=== PATIENT | female | born 1965 | race Caucasian/White ===

== ENCOUNTER 2017-02-24 11:10 | Emergency (ER) | payer BC, OTHER ==
[2017-02-24] MEDS ORDERED: 0.9 % SODIUM CHLORIDE 1,000 ML BAG IV ONE (11:20)
--- NOTE | 2017-02-24 11:40 | Emergency Department Record ---
History of Present Illness - General Chief Complaint: Abdominal Pain Stated Complaint: ABD PAIN Time Seen by Provider: 02/24/17 11:20 Source: Patient Mode of Arrival: Ambulatory Limitations: No limitations - History of Present Illness Initial Comments: 52 yo female presents with right flank pain and RLQ pain that initially started on Friday. The pain is somewhat sharp. The pain is better if resting and more pronounced if active. She has mild loose stools and mild nausea without vomiting. The pain comes and goes from the flank to the RLQ. No passing the midline. No fever. No blood in the stools. PCP Nini. Surgically history of C sections and gall bladder removal. MD Complaint: Abdominal pain, Flank pain Onset/Timin -: Days(s) Location: RLQ Radiation: None Migration to: No migration Severity: Mild Quality: Aching, Dull Consistency: Constant Improves With: Nothing Worsens With: Movement Associated Symptoms: Nausea - Related Data Patient : No Home Medications Medication Instructions Recorded Confirmed Last Taken Multivit-Min/Iron/Folic/Lutein 1 each PO DAILY 02/24/17 02/24/17 Unknown [Centrum Silver Women Tablet] Previous Rx's Medication Instructions Recorded Hydrocodone/Acetaminophen [Carville 1 each PO Q8H #10 tablet 02/24/17 5-325 Tablet] Ondansetron [Zofran Odt] 4 mg PO Q8H #15 tab.rapdis 02/24/17 Allergies Allergy/AdvReac Type Severity Reaction Status Date / Time benzoyl peroxide Allergy Unknown Unverified 08/16/13 10:04 Allergies: Allergy Unknown Uncoded 08/16/13 10:04 Travel Screening - Travel/Exposure Within Last 30 Days Have you traveled within the last 30 days?: No Review of Systems Constitutional: Denies: Chills, Fever, Malaise, Weakness Eyes: Denies: Eye discharge ENT: Denies: Congestion, Throat pain Respiratory: Denies: Cough, Dyspnea, Hemoptysis, Stridor, Wheezes Cardiovascular: Denies: Chest pain, Palpitations, Syncope Endocrine: Denies: Fatigue Gastrointestinal: Reports: As per HPI, Abdominal pain, Diarrhea, Nausea. Denies : Constipation, Hematemesis, Hematochezia, Melena, Vomiting Genitourinary: Denies: Dysuria, Hematuria, Urgency Musculoskeletal: Reports: As per HPI, Back pain. Denies: Arthralgia Skin: Denies: Bruising, Change in color, Rash Neurological: Denies: Headache, Numbness, Weakness Psychiatric: Denies: Anxiety Hematological/Lymphatic: Denies: Blood Clots, Easy bleeding, Easy bruising, Swollen glands Past Medical History - SOCIAL HISTORY Smoking Status: Never smoker Alcohol Use: None Drug Use: None - RESPIRATORY Hx Respiratory Disorders: Yes - CARDIOVASCULAR Hx Cardio Disorders: No - NEURO Hx Neuro Disorders: No - GI Hx GI Disorders: No - Hx Genitourinary Disorders: No - ENDOCRINE Hx Endocrine Disorders: No - MUSCULOSKELETAL Hx Musculoskeletal Disorders: No - PSYCH Hx Psych Problems: No - HEMATOLOGY/ONCOLOGY Hx Hematology/Oncology Disorders: Yes Hx Anemia: Yes Family Medical History Any Significant Family History?: No Physical Exam - General General Appearance: Alert, Oriented x3, Cooperative, No acute distress Limitations: No limitations - Head Head exam: Normal inspection - Eye Eye exam: Normal appearance, PERRL. negative: Conjunctival injection, Periorbital swelling - ENT ENT exam: Normal exam Ear exam: Normal external inspection Nasal Exam: Normal inspection Mouth exam: Normal external inspection - Neck Neck exam: Normal inspection, Full ROM. negative: Tenderness - Respiratory Respiratory exam: Normal lung sounds bilaterally. negative: Respiratory distress - Cardiovascular Cardiovascular Exam: Regular rate, Normal rhythm, Normal heart sounds - GI/Abdominal GI/Abdominal exam: Soft, Tenderness (tenderness right flank to RLQ, soft, no rebound or guarding). negative: Distended, Guarding, Rebound, Rigid - Rectal Rectal exam: Deferred - exam: Deferred - Extremities Extremities exam: Normal inspection, Full ROM, Normal capillary refill. negative: Tenderness - Back Back exam: Reports: Normal inspection, CVA tenderness (R), Full ROM, Tenderness. Denies: Muscle spasm, Rash noted - Neurological Neurological exam: Alert, Normal gait, Oriented X3 - Psychiatric Psychiatric exam: Normal affect, Normal mood. negative: Agitated, Anxious - Skin Skin exam: Dry, Intact, Normal color, Warm Course Vital Signs 02/24/17 11:17 Temperature 98.2 F Pulse Rate 71 Respiratory 20 Rate Blood Pressure 198/107 Pulse Ox 99 - Reevaluation(s) Reevaluation #1: 02/24/17 12:06 No acute changes on the CBC or UA 02/24/17 12:23 No acute changes on the CMP, Lipase, HCG 02/24/17 12:[address] of the abdomen and pelvis were negative for any acute process No fever Normal WBC count The patient was informed of her results with no acute process noted. On recheck the pain is mostly right hip or groin low. It is reproduced with movement. Likely musculoskeletal in nature. We discussed the labs, UA and CT without acute changes. 02/24/17 13:30 The elevated BP was discussed and recommended follow up with PCP She was given a new patient packet for [facility] Medical Decision Making - Lab Data Result diagrams: 02/24/17 11:30 02/24/17 11:30 Disposition Disposition: Discharge Clinical Impression: Flank pain, acute Groin pain Qualifiers: Laterality: right Qualified Code(s): R10.31 - Right lower quadrant pain Disposition: Home, Self-Care Condition: (1) Good Instructions: Flank Pain (ED), Groin Pain (ED) Additional Instructions: Rest the next 48 hours without lifting Return if the pain increases, fever, vomiting, changes in bowel movements or urination Call for a new family doctor Prescriptions: Hydrocodone/Acetaminophen [Carville 5-325 Tablet] 1 each PO Q8H #10 tablet Ondansetron [Zofran Odt] 4 mg PO Q8H #15 tab.rapdis Forms: Patient Portal Access Time of Disposition: 13:31 Quality - Quality Measures Quality Measures: N/A - Blood Pressure Screening Does Patient Have Any of the Following: No Blood Pressure Classification: Hypertensive Reading Systolic Measurement: 198 Diastolic Measurement: 107 Screening for High Blood Pressure: < Pre-Hypertensive BP, F/U Documented > [ [id number]] Pre-Hypertensive Follow-up Interventions: Referral to alternative/primary care provider.
[2017-02-24] MEDS ORDERED: KETOROLAC 30 MG/ML VIAL IVP ONE (11:42)
[2017-02-24 11:54] LABS: URINE APPEARANCE CLEAR; URINE BILIRUBIN NEGATIVE (NEGATIVE); URINE BLOOD NEGATIVE (NEGATIVE); URINE COLOR YELLOW; URINE GLUCOSE (UA) NEGATIVE (NEGATIVE); URINE KETONE NEGATIVE (NEGATIVE); URINE LEUKOCYTE ESTERASE NEGATIVE (NEGATIVE); URINE NITRITE NEGATIVE (NEGATIVE); URINE PROTEIN NEGATIVE (NEGATIVE); URINE UROBILINOGEN 0.2 E.U./dL (0.20 - 1.00)
[2017-02-24 11:55] LABS: BASO % 0.4 % (0-6); EOS % 1.3 % (0-6); GRAN % 59.9 % (47-80); HEMATOCRIT 43.9 % (35.0-47.0); HEMOGLOBIN 14.7 gm/dl (11.6-16.0); LYMPH % 26.1 % (16-45); MEAN CELL VOLUME 85.2 fl (81-97); MEAN CORPUSCULAR HEMOGLOBIN 28.5 pg (27-33); MEAN CORPUSCULAR HGB CONC 33.5 g/dl (32-36); MEAN PLATELET VOLUME 11.2 fl (7.4-10.4); MONO % 12.3 % (0-9); PLATELET COUNT 264 K/uL (130-400); RED BLOOD COUNT 5.15 M/uL (3.80-5.40); RED CELL DISTRIBUTION WIDTH 13.1 % (11.5-14.5); WHITE BLOOD COUNT W/O DIFF 5.6 K/uL (4.2-12.2)
[2017-02-24 12:08] LABS: ALB/GLOB RATIO 1.3 (1.1-1.8); ALBUMIN 4.3 g/dL (4.0-5.0); ALKALINE PHOSPHATASE 77 U/L (35-104); ALT/SGPT 39 U/L (<33); AST/SGOT 32 U/L (10.0-35.0); BLOOD UREA NITROGEN 11 mg/dL (6-20); CREATININE 0.6 mg/dL (0.5-0.9); EST GLOMERULAR FILTRATION RATE > 60 mL/min; GLUCOSE,RANDOM 128 mg/dL (74-109); LIPASE 33 U/L (13-60); TOTAL PROTEIN 7.5 g/dL (6.6-8.7)
[2017-02-24] MEDS ORDERED: ACETAMINOPHEN 1,000 MG/100 ML BTL IVPB ONE (12:40)
[2017-02-24] MEDS ORDERED: ONDANSETRON HCL IV 4 MG/2 ML VIAL IVP ONE (12:40)
--- NOTE | 2017-02-25 07:48 | CT SCAN REPORT ---
EXAM: ABDOMEN AND PELVIS CT WITHOUT CONTRAST HISTORY: NAUSEA, FATIGUE, LEFT LOWER QUADRANT ABDOMINAL PAIN. TECHNIQUE: Contiguous axial images from the lung bases to the symphysis pubis were obtained without IV contrast. Comparison: None. FINDINGS: 2 mm ground glass nodule left lower lobe of no significance. The liver and spleen are unremarkable. Nonobstructing calculus upper pole left kidney measuring 3 mm. The right kidney is unremarkable. The adrenals and pancreas are unremarkable. The gallbladder is absent. The visualized loops of small and large bowel are of normal caliber. Normal appendix. Small amount of fecal material throughout the colon. No free intraperitoneal fluid or adenopathy. The uterus is present. Midline incisional scar in the pelvis. The osseous structures reveal no lytic or blastic lesion. IMPRESSION: 1. NO ACUTE PROCESS OF THE ABDOMEN OR PELVIS. 2. NONOBSTRUCTING 3 MM CALCULUS UPPER POLE LEFT KIDNEY. JOB NUMBER: [id number] [facility]
== END 2017-02-24 13:49 | disposition home or self-care (01) ==
LOC: ER 11:10
DX: R10.31 Right lower quadrant pain (principal); R11.0 Nausea; R53.83 Other fatigue
CPT/HCPCS: 99284 ×2; 96365; 96375; 83690; 85025; 80053; 81003; 81025; 74176; J1885; J2405; J7030

== ENCOUNTER 2018-03-26 10:19 | Day surgery (SDC) | payer OTHER ==
[2018-03-26] MEDS ORDERED: PROPOFOL 10 MG/ML VIAL IV ONE (10:20)
[2018-03-26] MEDS ORDERED: LIDOCAINE 2% MDV (20MG/ML) 20ML VIAL IV ONE (10:20)
--- NOTE | 2018-03-27 08:50 | Operative Note ---
DATE OF SURGERY: 03/26/18 OPERATION: COLONOSCOPY with cold snare polypectomy x2. PREOPERATIVE DIAGNOSIS: Screening. POSTOPERATIVE DIAGNOSIS: Polyps and external hemorrhoids. PREPARATION QUALITY: Good. ESTIMATED BLOOD LOSS: Minimum. SPECIMENS: Ascending colon and sigmoid polyps. COMPLICATIONS: None apparent. PROCEDURE: After informed consent was obtained from the patient, she was placed in the left lateral decubitus position in the endoscopy suite, sedated and monitored by the department of anesthesia. Digital rectal exam was unremarkable. A well-lubricated [id number] colonoscope was inserted into the rectum and advanced to the cecum. Preparation quality was good. The cecum and cecal bulb were unremarkable. The ascending colon did reveal a 6 mm sessile polyp removed with a cold snare with minimal bleeding noted. The polyp was retrieved without difficulty. The remainder of the ascending colon, transverse colon, and descending colon were unremarkable. The sigmoid colon did reveal a 3-4 mm polyp removed with a cold snare. The rectum was unremarkable in forward and J-turn views. The endoscope was straightened, the rectal ampulla deflated, and the endoscope was removed. It should be noted that the patient did have external hemorrhoids. RECOMMENDATIONS: I would suggest the patient follow a high-fiber diet and fiber supplement, use Preparation H as needed. She will require repeat colonoscopy in 3-5 years pending tissue histology. As always, thank you for allowing me to participate in the healthcare of your patients. CC: Naveen Schneider MD [facility]
== END 2018-03-26 11:07 | disposition home or self-care (01) ==
LOC: HOP 10:19
PROVIDERS: ATTEND Internal Medicine Gastroenterology
DX: Z12.11 Encounter for screening for malignant neoplasm of colon (principal); D12.2 Benign neoplasm of ascending colon; D12.5 Benign neoplasm of sigmoid colon